=== PATIENT | male | born 1945 | race Caucasian/White ===

== ENCOUNTER 2019-10-05 18:27 | Observation (INO) ==
[2019-10-05 19:13] LABS: Basophils % 0.3 %; Eosinophils # 0.2 K/mcL (0.0-0.6); Eosinophils % 1.7 %; Hematocrit 39.4 % (37.5-50.1); Immature Granulocytes % 0.2 % (0-4); Lymphocytes # 2.1 K/mcL (0.6-4.6); Lymphocytes % 22.9 %; Mean Corpuscular Hemoglobin 28.9 pg (28.0-33.3); Mean Corpuscular Volume 87.6 fL (83.0-100.0); Mean Platelet Volume 9.1 fL (9.4-12.4); Monocytes # 0.6 K/mcL (0.0-1.3); Monocytes % 6.4 %; Neutrophils # 6.4 K/mcL (1.6-8.9); Platelet Count 283 K/mcL (140-400); Red Cell Distribution Width 12.9 % (11.5-14.5); Segmented Neutrophils % 68.5 %; White Blood Count 9.3 K/mcL (4.3-11.1)
[2019-10-05 19:23] LABS: INR 1.1; Prothrombin Time 12.1 Seconds (9.4-12.1)
[2019-10-05 19:26] LABS: Activated Partial Thrombo Time 30.2 Seconds (26.0-36.0)
[2019-10-05 19:40] LABS: Amorphous Sediment,Urine Few per hpf (None-Few); Bilirubin,Urine Negative (Negative); Blood,Urine Trace (Negative); Budding Yeast,Urine Moderate per hpf (None Seen); Calcium Oxalate Crystals,Urine Present; Clarity,Urine Turbid (Clear); Color,Urine Yellow (Yellow); Glucose,Urine (UA) Normal (Normal); Hyaline Casts,Urine Few per lpf (None Seen); Ketones,Urine Trace mg/dL (Negative); Leukocyte Esterase,Urine Negative (Negative); Mucus,Urine Few per lpf (None-Few); Nitrite,Urine Negative (Negative); Protein,Urine 50 mg/dL (Neg-Trace); RBC,Urine 15-30 per hpf (0-3); Specific Gravity,Urine 1.023 (1.010-1.025); Squamous Epithelial Cell,Urine Few per hpf (None-Few); Urobilinogen,Urine Normal (Normal); WBC,Urine 15-30 per hpf (0-3)
[2019-10-05 19:43] LABS: BUN/Creatinine Ratio 17 (6-26); Blood Urea Nitrogen 14 mg/dL (8-23); Calcium 9.8 mg/dL (8.6-10.3); Carbon Dioxide 25 mEq/L (23-29); Chloride 99 mEq/L (98-107); Glucose 192 mg/dL (70-105); Osmolality,Calculated 286 (280-300); Potassium 3.5 mEq/L (3.5-5.1); Sodium 135 mEq/L (136-145); Troponin I < 0.03 ng/mL (< 0.04); eGFR For African Americans > 60 (> 60); eGFR For Non-African Americans > 60 (> 60)
[2019-10-05] MEDS ORDERED: Naloxone 0.4 MG/ML INJ IVP PRN (21:31)
[2019-10-05] MEDS ORDERED: *HR* Dextrose 50 % in Water (Vial) 50 ML VIAL IVP PRN (21:59)
[2019-10-05] MEDS ORDERED: D5% in Water 1,000 ML IVC PRN (21:59)
[2019-10-05] MEDS ORDERED: Dextrose Gel 15 GM/37.5 ML TUBE PO PRN ×2 (21:59)
[2019-10-05] MEDS ORDERED: 0.9 % Sodium Chloride 1,000 ML IVC SCH (23:15)
[2019-10-06] MEDS: *HR* Heparin 5,000 UNIT/ML VIAL SQ SCH ×3 (05:24→20:59)
[2019-10-06 07:16] LABS: Basophils % 0.6 %; Eosinophils # 0.3 K/mcL (0.0-0.6); Eosinophils % 3.5 %; Hematocrit 38.7 % (37.5-50.1); Hemoglobin 12.5 g/dL (12.9-16.9); Immature Granulocytes % 0.3 % (0-4); Lymphocytes % 40.9 %; Mean Corpuscular HGB Conc 32.3 g/dL (31.6-35.5); Mean Corpuscular Hemoglobin 28.3 pg (28.0-33.3); Mean Corpuscular Volume 87.6 fL (83.0-100.0); Mean Platelet Volume 9.6 fL (9.4-12.4); Monocytes # 0.4 K/mcL (0.0-1.3); Neutrophils # 3.5 K/mcL (1.6-8.9); Platelet Count 277 K/mcL (140-400); Red Blood Count 4.42 M/mcL (4.19-5.50); Red Cell Distribution Width 13.2 % (11.5-14.5); Segmented Neutrophils % 48.7 %; White Blood Count 7.2 K/mcL (4.3-11.1)
[2019-10-06 08:46] LABS: BUN/Creatinine Ratio 17 (6-26); Blood Urea Nitrogen 11 mg/dL (8-23); Calcium 9.5 mg/dL (8.6-10.3); Carbon Dioxide 27 mEq/L (23-29); Chloride 101 mEq/L (98-107); Glucose 148 mg/dL (70-105); Osmolality,Calculated 286 (280-300); Potassium 3.8 mEq/L (3.5-5.1); Sodium 137 mEq/L (136-145); eGFR For African Americans > 60 (> 60); eGFR For Non-African Americans > 60 (> 60)
[2019-10-06] MEDS: Cholecalciferol (D-3) 1,000 UNIT (25MCG) TABLET PO SCH (08:47)
[2019-10-06] MEDS: Aspirin Enteric Coated 81 MG Tablet PO SCH (08:48)
[2019-10-06] MEDS: lisinopriL 5 MG TABLET PO SCH (08:48)
[2019-10-06] MEDS: Gabapentin 300 MG CAPSULE PO SCH ×3 (08:48→20:59)
[2019-10-06] MEDS: Loratadine 10 MG TABLET PO SCH (08:49)
[2019-10-06] MEDS: *HR* OxyCODONE/APAP 10/325 TABLET PO PRN ×2 (08:59→15:09)
[2019-10-06] MEDS: Insulin LISPRO 300 UNITS/3 ML VIAL SQ SCH ×3 (08:59→16:37)
[2019-10-06 09:43] LABS: Estimated Average Glucose 220 mg/dl; Hemoglobin A1C 9.3 %
[2019-10-06 13:50] LABS: Folate 17.6 ng/mL (3.0-16.0)
[2019-10-06] MEDS: 0.9 % Sodium Chloride 1,000 ML IVC SCH (16:35)
[2019-10-06] MEDS: Cyanocobalamin (B-12) 1,000 MCG TABLET PO SCH (16:36)
[2019-10-07] MEDS: 0.9 % Sodium Chloride 1,000 ML IVC SCH ×2 (05:24→12:44)
[2019-10-07] MEDS: *HR* Heparin 5,000 UNIT/ML VIAL SQ SCH ×2 (05:25→13:29)
[2019-10-07] MEDS: lisinopriL 5 MG TABLET PO SCH (09:15)
[2019-10-07] MEDS: Gabapentin 300 MG CAPSULE PO SCH (09:15)
[2019-10-07] MEDS: Aspirin Enteric Coated 81 MG Tablet PO SCH (09:15)
[2019-10-07] MEDS: Cholecalciferol (D-3) 1,000 UNIT (25MCG) TABLET PO SCH (09:15)
[2019-10-07] MEDS: Cyanocobalamin (B-12) 1,000 MCG TABLET PO SCH (09:15)
[2019-10-07] MEDS: Loratadine 10 MG TABLET PO SCH (09:15)
[2019-10-07] MEDS: Insulin LISPRO 300 UNITS/3 ML VIAL SQ SCH ×2 (09:18→12:44)
[2019-10-07 11:01] VITALS: BP 129/83
[2019-10-07] MEDS: *HR* OxyCODONE/APAP 10/325 TABLET PO PRN (12:47)
== END 2019-10-07 13:59 | disposition home health service (06) ==
LOC: 3BNU 18:27 → EMEROOARM 18:27 → SUATTDRO 21:37 → 3BNU 22:24
PROVIDERS: ADMIT Family Medicine; ATTEND Student in an Organized Health Care Education/Training Program